=== PATIENT | male | born 1980 | race Hispanic/Latino ===

== ENCOUNTER 2018-02-24 09:47 | Emergency (ER) | payer OTHER ==
[2018-02-24 09:55] VITALS: BMI 25.7
[2018-02-24] MEDS ORDERED: Sodium Chloride 0.9% 1,000 ML IV STA ×2 (11:32→14:05)
--- NOTE | 2018-02-24 11:35 | ED PDOC ---
HPI: Headache Time Seen by Provider: 02/24/18 11:33 Chief Complaint (Nursing): Headache Chief Complaint (Provider): headache History Per: Patient (37 y/o male here with headache that began gradually on Saturday (2 days ago) during normal activity bitemporal but focused frontal region now. Associated with vomiting today. Feels generally weak but no unilateral weakness noted.) Past Medical History Reviewed: Historical Data, Nursing Documentation, Vital Signs Vital Signs: Last Vital Signs Temp 97.8 F 02/24/18 09:55 Pulse 62 02/24/18 09:55 Resp 17 02/24/18 09:55 BP 129/72 02/24/18 09:55 Pulse Ox 96 02/24/18 09:55 - Family History Family History: States: No Known Family Hx - Home Medications Home Medications: Ambulatory Orders Medication Instructions Recorded Acetaminophen/Butalbital/Caf 1 tab PO Q4 PRN #20 tab 02/24/18 [Fioricet] Ketorolac Tromethamine [Toradol] 1 tab PO Q6 PRN #12 tab 02/24/18 - Allergies Allergies/Adverse Reactions: Allergies Allergy/AdvReac Type Severity Reaction Status Date / Time pseudoephedrine Allergy SHORTNESS Verified 02/24/18 10:03 OF BREATH Review of Systems ROS Statement: Except As Marked, All Systems Reviewed And Found Negative Neurological: Positive for: Headache Physical Exam - Reviewed Nursing Documentation Reviewed: Yes Vital Signs Reviewed: Yes - Physical Exam Appears: Positive for: Well, Non-toxic, No Acute Distress Head Exam: Positive for: ATRAUMATIC, NORMAL INSPECTION, NORMOCEPHALIC Skin: Positive for: Normal Color, Warm, DRY Eye Exam: Positive for: Normal appearance, EOMI, PERRL, Nystagmus ENT: Positive for: Normal ENT Inspection Neck: Positive for: Normal, Painless ROM Cardiovascular/Chest: Positive for: Regular Rate, Rhythm Respiratory: Positive for: CNT, Normal Breath Sounds Gastrointestinal/Abdominal: Positive for: Normal Exam, Soft Back: Positive for: Normal Inspection Extremity: Positive for: Normal ROM Neurologic/Psych: Positive for: Alert, Oriented - Laboratory Results Result Diagrams: 02/24/18 13:25 02/24/18 13:25 - ECG O2 Sat by Pulse Oximetry: 96 - Progress ED Course And Treament: NS 1 liter wide open x 2 Reglan 10 mg i vx 1 dose pepcid 20 mg iv x 1 dose decadron 10 mg iv x 1 dose toradol 15 mg iv x 1 dose Disposition - Clinical Impression Clinical Impression: Headache - Patient ED Disposition Is Patient to be Admitted: No - Disposition Referrals: Jaxon Wright MD [Medical Doctor] - [facility]Outside[facility] Disposition: Routine/Home Disposition Time: 16:48 Condition: FAIR Prescriptions: Acetaminophen/Butalbital/Caf [Fioricet] 1 tab PO Q4 PRN #20 tab PRN Reason: Pain, Moderate (4-7) Ketorolac Tromethamine [Toradol] 1 tab PO Q6 PRN #12 tab PRN Reason: Pain, Moderate (4-7) Instructions: Headache, Adult (DC) Forms: [facility] ED School/Work Excuse
--- NOTE | 2018-02-24 12:26 | CT ---
Date of service: 02/24/2018 PROCEDURE: CT HEAD WITHOUT CONTRAST. HISTORY: headache since saturday COMPARISON: None available. TECHNIQUE: Axial computed tomography images were obtained through the head/brain without intravenous contrast. Radiation dose: Total exam DLP = 918.6 mGy-cm. This CT exam was performed using one or more of the following dose reduction techniques: Automated exposure control, adjustment of the mA and/or kV according to patient size, and/or use of iterative reconstruction technique. FINDINGS: HEMORRHAGE: No intracranial hemorrhage. BRAIN: No mass effect or edema. No atrophy or chronic microvascular ischemic changes. VENTRICLES: Unremarkable. No hydrocephalus. CALVARIUM: Unremarkable. PARANASAL SINUSES: Unremarkable as visualized. No significant inflammatory changes. MASTOID AIR CELLS: Unremarkable as visualized. No inflammatory changes. OTHER FINDINGS: None. IMPRESSION: No acute intracranial pathology.
[2018-02-24 13:39] LABS: BASO % 0.3 % (0.0-2.0); EOS % 0.5 % (0.0-4.0); MEAN CELL VOLUME 89.5 fl (80.0-94.0); MEAN CORPUSCULAR HEMOGLOBIN 29.8 pg (27.0-31.0); MEAN CORPUSCULAR HGB CONC 33.3 g/dL (33.0-37.0); MEAN PLATELET VOLUME 8.3 fl (7.2-11.7); MONO # 0.5 K/uL (0.0-0.8); MONO % 6.3 % (0.0-10.0); NEUT # 5.8 K/uL (1.8-7.0); NEUT % 78.9 % (50.0-75.0); RBC 4.35 Mil/uL (4.40-5.90); RED CELL DISTRIBUTION WIDTH 13.2 % (11.5-14.5); WHITE BLOOD COUNT 7.4 K/uL (4.8-10.8)
[2018-02-24 13:45] LABS: PARTIAL THROMBOPLASTIN TIME 28.3 Seconds (25.6-37.1)
[2018-02-24 13:52] LABS: ALB/GLOB RATIO 1.3 (1.0-2.1); ALBUMIN 4.1 g/dL (3.5-5.0); ALT/SGPT 45 U/L (21-72); AST/SGOT 58 U/L (17-59); BLOOD UREA NITROGEN 16 mg/dl (9-20); CALCIUM 9.1 mg/dL (8.4-10.2); GFR NON-AFRICAN AMERICAN > 60
[2018-02-24] MEDS ORDERED: Dexamethasone 10 MG in Dextrose 5% In Water 50 ML IV STA (14:00)
[2018-02-24 17:09] VITALS: BP 100/46; PULSE 64; RESP 18; TEMP 98.4; O2SAT 98
== END 2018-02-24 17:11 | disposition home or self-care (01) ==
LOC: H.ER 09:47
DX: R51 Headache (principal)
CPT/HCPCS: 70450; 80053; 85025; 85610; 85730; 96374; 96375; 99283; J1100; J1885; J2765; J7030